=== PATIENT | female | born 1965 | race Caucasian/White ===

== ENCOUNTER → 2020-08-23 | Outpatient (CLI) | payer OTHER ==
[~2020-08-23] MED LIST: ACETAMINOPHEN-1 EAC1 PO; IBUPROFEN 800800 MG PO; ROBAXIN500 MG PO
== END ==
LOC: M.LAB 08:17
PROVIDERS: ATTEND Student in an Organized Health Care Education/Training Program
DX: Z01.812 Encounter for preprocedural laboratory examination (principal); Z20.822 Contact with and (suspected) exposure to COVID-19; M17.12 Unilateral primary osteoarthritis, left knee

== ENCOUNTER 2021-06-26 13:55 | Emergency (ER) | payer OTHER ==
[~2021-06-26] VITALS: Ht 162.6 cm; Wt 90.7 kg
[2021-06-26] MEDS ORDERED: LORATIDINE 10 M10 M1 PO (14:13)
[2021-06-26] MEDS ORDERED: CIMETIDINE800 MG PO (14:13)
[2021-06-26] MEDS ORDERED: MINIVELLE1 EAC1 TOP (14:13)
[2021-06-26] MEDS ORDERED: VITAMIN D21250 MCG PO (14:14)
[2021-06-26] MEDS ORDERED: PROPRANOLOL 20M20 M1 PO (14:14)
[2021-06-26] MEDS ORDERED: COLON HEALTH PROBIOT (14:14)
[2021-06-26] MEDS ORDERED: NORCO 10-325 T1 EACH PO (14:14)
[2021-06-26] MEDS ORDERED: SINGULAIR 10 MG10 MG PO (14:15)
[2021-06-26] MEDS ORDERED: SERTRALINE HCL100 MG PO (14:15)
[2021-06-26] MEDS ORDERED: PREDNISONE 10 M10 MG PO (14:16)
[2021-06-26] MEDS ORDERED: DESYREL150 MG PO (14:16)
[2021-06-26] MEDS ORDERED: FLEXERIL PO (14:16)
[2021-06-26] MEDS ORDERED: CALCIUM + VITA1 EACH PO (14:17)
[2021-06-26] MEDS ORDERED: ELETRIPTAN HBR40 MG PO (14:17)
[2021-06-26] MEDS ORDERED: VITAMIN C1000 MG PO (14:17)
[2021-06-26] MEDS ORDERED: MELATONIN10 M2 PO (14:18)
[2021-06-26] MEDS ORDERED: SYMBICORT160 MCG/4. INH (14:18)
[2021-06-26] MEDS ORDERED: GLUCOSAMINE H1500 MG PO (14:18)
[2021-06-26] MEDS ORDERED: PROAIR HFA8.5 GM INH (14:18)
[2021-06-26] MEDS ORDERED: PROVENTIL HFA6.7 G1 INH (14:18)
[2021-06-26] MEDS ORDERED: B-12 (14:19)
[2021-06-26] MEDS ORDERED: STOOL SOFTENER100 MG PO (14:19)
[2021-06-26 19:12] VITALS: BP 136/71
== END 2021-06-26 19:12 | disposition left against medical advice (07) ==
LOC: M.ERS 13:55
DX: K92.1 Melena (principal); Z53.21 Procedure and treatment not carried out due to patient leaving prior to being seen by health care provider